=== PATIENT | female | born 1965 | race Caucasian/White ===

== ENCOUNTER 2018-11-08 14:01 | Outpatient (CLI) | payer OTHER ==
--- NOTE | 2018-11-08 15:38 | RAD ---
THREE VIEWS THORACIC SPINE: 11/08/18 HISTORY: Disability evaluation. COMPARISON: None. FINDINGS: AP, swimmers and a lateral view of the thoracic spine are submitted for interpretation. Twelve thorac ic type vertebral bodies. There is irregularity likely due to remote compression fracture at T10. The re does appear to be significant loss of vertebral body height. Irregularity on the superior end plat e of T11 is also suspected. There is resultant kyphosis. IMPRESSION: Severe loss of vertebral body height at T10 with associated kyphosis. POS: OFF
== END 2018-11-08 14:02 | disposition home or self-care (01) ==
LOC: NAV RAD 14:01
PROVIDERS: ATTEND Family Medicine
DX: Z02.71 Encounter for disability determination (principal); S22.009S Unspecified fracture of unspecified thoracic vertebra, sequela; M40.294 Other kyphosis, thoracic region
CPT/HCPCS: 72072

== ENCOUNTER 2025-01-18 08:28 | Emergency (ER) | payer OTHER ==
[2025-01-18] MEDS ORDERED: Ibuprofen 200 MG TAB ONE (08:54)
== END 2025-01-18 10:12 | disposition home or self-care (01) ==
LOC: NAV ERS 08:28
DX: B34.9 Viral infection, unspecified (principal)
CPT/HCPCS: 87428; 99283

== ENCOUNTER 2025-04-13 12:00 | Emergency (ER) | payer OTHER ==
[2025-04-13] MEDS ORDERED: Naproxen 500 MG TAB ONE (12:33)
== END 2025-04-13 13:06 | disposition home or self-care (01) ==
LOC: NAV ERS 12:00
DX: S90.31XA Contusion of right foot, initial encounter (principal); I10 Essential (primary) hypertension; F17.210 Nicotine dependence, cigarettes, uncomplicated; W20.8XXA Other cause of strike by thrown, projected or falling object, initial encounter; Y93.89 Activity, other specified; Y92.219 Unspecified school as the place of occurrence of the external cause; Y99.0 Civilian activity done for income or pay
CPT/HCPCS: 99283